=== PATIENT | female | born 1945 | race Caucasian/White ===

== ENCOUNTER 2022-04-03 11:50 | Day surgery (SDC) | payer OTHER ==
[~2022-04-03] VITALS: Ht 165.1 cm; Wt 56.8 kg
[~2022-04-03 11:50] MED LIST: ANIMAL CHEWS1 EACH PO; CALCIUM 600 +1 EAC1 PO; CALCIUM500 M1 PO; CELEBREX200 MG PO; GLUCOSAMINE1000 MG PO; HYDROCODON-ACE1 EA11 PO; MAGNESIUM100 MG PO; MAGNESIUM27 MG PO; PREVACID30 MG PO; VITAMIN D400 UNIT PO; VITAMIN D50000 UNI1 PO; VITAMIN E400 UNI1 PO; XANAX0.5 MG PO; [UNRECOGNIZED DRUG - OTHER]
--- NOTE | 2022-04-03 15:04 | NUR ---
04/03/22 Nader4 Francy Stacy 1500- PT ARRIVES TO PACU AWAKE AND TALKING. PT REPORTS NO PAIN OR NAUSEA. RESP EVEN AND UNLABORED. OXYGEN SAT HIGH 90'S ON RA. PT'S HEAD OF BED ELEVATED SLIGHTLY. PT REPORTS NO DIZZINESS WITH THIS.
[2022-04-03] MEDS ORDERED: ACETAMINOPHEN500 MG PO (15:15)
[2022-04-03] MEDS ORDERED: OXYCODON-ACETA1 EAC2 PO (15:15)
[2022-04-03] MEDS ORDERED: IBUPROFEN600 MG PO (15:15)
--- NOTE | 2022-04-06 14:34 | OR ---
[facility] [address] [place], [place] [address] Signed DATE OF OPERATION: 04/03/2022 SURGEON: Kevon Lloyd MD PREOPERATIVE DIAGNOSIS: Soft tissue mass posterior superior thorax. 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 PROCEDURE: Excision of soft tissue mass (6 cm, subfascial adjacent to posterior thoracic fascia). ANESTHESIA: Local with monitored anesthesia care, Geoff Olson CRNA and local 10 mL of 0.25% Marcaine with epinephrine. INDICATION: This 77-year-old white woman who is a patient of [facility]. She was referred for colonoscopy as well as a soft tissue mass in the right posterior junction to the neck and thorax. Soft tissue mass most likely represents a lipoma. She has no regional adenopathy. An ultrasound performed, showing a 3.6 cm mass and an adjacent lobulated 2.2 cm nearby mass in February 2022. She wishes to have excision of the mass. She understands the risks of bleeding, infection, recurrence, and other unforeseen complications related to the mass excision and wishes to proceed. FINDINGS: Indeed, a lipomatous mass was noted. It was subfascial and densely adjacent to the posterior thoracic fascia. Complete excision was accomplished. The wound was closed without problem. PROCEDURE IN DETAIL: The patient brought to the operating room, placed in lateral decubitus position, left side down. The posterior thorax and neck were prepared with a chlorhexidine solution and draped sterilely. A 1% lidocaine was injected transversely directly over the mass. Dissection carried through the dermis and subcutaneous tissue with sharp and electrocautery dissection. The capsule over the lipomatous mass was noted. This was dissected free from surrounding soft tissue and extended down to the posterior thoracic fascia. It was excised completely. Irrigation was undertaken. A 10 mL of 0.25% Marcaine with epinephrine was injected in total. The wound was closed in layers with Electronically Signed By: KEVON LLOYD MD 04/06/22 1434 PATIENT NAME: NAEEM CUELLO OPERATIVE REPORT DATE OF : 49 REPORT #: [id number] PHYSICIAN: KEVON LLOYD MD PCP: ADELE JOY REPORT IS CONFIDENTIAL AND NOT TO BE RELEASED WITHOUT AUTHORIZATION [address] [address] Signed interrupted 2-0 Vicryl and running subcuticular 3-0 Vicryl for the skin. Steri-Strips were applied. An Acticoat dressing was additionally applied. She tolerated procedure well. Blood loss was minimal. MD MARY ALICE Hahn/SHEA /[id number] cc: JOBY Evans Copies: ~ Electronically Signed By: KEVON LLOYD MD 04/06/22 1434 PATIENT NAME: NAEEM CUELLO OPERATIVE REPORT DATE OF : 49 REPORT #: [id number] PHYSICIAN: KEVON LLOYD MD PCP: ADELE JYO REPORT IS CONFIDENTIAL AND NOT TO BE RELEASED WITHOUT AUTHORIZATION
--- NOTE | 2022-04-09 06:17 | PATH ---
[facility] [address] [place], [place] [address] Signed SPECIMEN(S): A POSTERIOR CHEST SPECIMEN SOURCE: A. POSTERIOR CHEST CLINICAL HISTORY: Lipoma FINAL PATHOLOGIC DIAGNOSIS: Posterior chest, soft tissue mass, excision: - Lipoma. NRT:cml:C2NR MICROSCOPIC EXAMINATION: Histologic sections of all submitted blocks are examined by light microscopy. These findings, together with the gross examination, support the pathologic diagnosis. GROSS DESCRIPTION: The specimen, labeled "DM, A," and designated on the requisition "soft tissue mass posterior chest, lipoma," is received in formalin and consists of multiple yellow, lobulated, markedly ragged, rubbery, unoriented, designated, and fatty tissue pieces from less than 0.1 up to 4.4 cm in greatest dimension and 5.9 g. The specimen is inked blue and cross-sectioned to reveal yellow, lobulated, and homogenous tissue. The largest piece has a rare, focal, 0.8 cm in greatest dimension area of white fibrous septae that is without an associated mass/lesion. An additional fibrous area or a discrete mass/lesions are grossly identified. Geoscience Specialist sections are submitted in one cassette (A1). AI (under the direct supervision of a pathologist) The Gross Description was prepared using a voice recognition system. The report was reviewed for accuracy; however, sound-alike word errors, addition and/or deletions may occur. If there is any question about this report, please contact Client Services. PERFORMING LABORATORY: The technical component was performed by [facility], [address] [place] [id number] (CLIA# [id number]). Professional interpretation was performed by [facility] PATIENT NAME: NAEEM CUELLO PATHOLOGY DATE OF : 49 REPORT #: [id number] PHYSICIAN: [facility] PCP: ADELE JOY REPORT IS CONFIDENTIAL AND NOT TO BE RELEASED WITHOUT AUTHORIZATION [facility] [address] [place], [place] [address] Signed [facility], [address] [place] [address], [facility], [place] [address] (CLIA# [id number]). Diagnostician: Meghan Glaser MD Pathologist Electronically Signed 04/08/2022 Copies: ~ PATIENT NAME: NAEEM CUELLO PATHOLOGY DATE OF : 49 REPORT #: [id number] PHYSICIAN: [facility] PCP: ADELE JOY REPORT IS CONFIDENTIAL AND NOT TO BE RELEASED WITHOUT AUTHORIZATION
== END 2022-04-03 15:48 | disposition home or self-care (01) ==
LOC: DS 11:50
PROVIDERS: ATTEND Surgery
PROC: 0WB80ZZ Excision of Chest Wall, Open Approach (ICD-10-PCS; principal; 2022-04-03 14:45)
DX: D17.79 Benign lipomatous neoplasm of other sites (principal); K21.9 Gastro-esophageal reflux disease without esophagitis; Z88.5 Allergy status to narcotic agent; Z88.0 Allergy status to penicillin
CPT/HCPCS: 00300; J0690; J2704; J3010; J7121

== ENCOUNTER 2022-05-08 11:52 | Day surgery (SDC) | payer OTHER ==
[~2022-05-08] VITALS: Ht 165.1 cm; Wt 56.8 kg
[~2022-05-08 11:52] MED LIST changes: +ACETAMINOPHEN500 MG PO; +IBUPROFEN600 MG PO; +OXYCODON-ACETA1 EAC2 PO
--- NOTE | 2022-05-08 13:25 | NUR ---
05/08/22 1325 Sheets,Elisabet 1318-PATIENT ARRIVED TO PACU ON 2L NC RR EVEN. PATIENT AWAKE DENIES PAIN OR NAUSEA. LAYING LEFT LATERAL. IVF INFUSING. ABDOMEN SOFT. ENCOURAGED TO PASS GAS. PATIENT REPOSITIONED TO BACK REPORTS "SHOULDER FEELS NUMB" PATIENT DOZES TO SLEEP.
--- NOTE | 2022-05-08 15:13 | OR ---
[facility] [address] [place], [place] [address] Signed DATE OF OPERATION: 05/08/2022 SURGEON: Kevon Lloyd MD PREOPERATIVE DIAGNOSIS: History of hyperplastic polyps 2018. POSTOPERATIVE DIAGNOSES: 1. Hyperplastic polyps of rectum and rectosigmoid. 2. Diverticulosis. PROCEDURE: Total colonoscopy to cecum with cold morcellation polypectomy x6. ANESTHESIA: Intravenous sedation; fentanyl 175 mcg and Versed 7 mg. INDICATION: This 77-year-old white woman is a patient of [facility]. She is known to me from the past having undergone colonoscopy. She had hyperplastic polyps noted in 2018. She is symptom-free and has no family history of colon cancer. She is admitted at this time to undergo colonoscopy. She understands the risk of bleeding, infection, and perforation. FINDINGS: The prep was excellent. Complete colonoscopy was undertaken to the cecum without question. She had hyperplastic appearing polyps of rectosigmoid and rectum which were excised with cold morcellation technique. She had no polyps that are worrisome for cancer in any way. She additionally had diverticulosis of the sigmoid and left colon. DESCRIPTION OF PROCEDURE: The patient was brought to the endoscopy suite and placed in lateral decubitus position, given intravenous sedation to the point of slurred speech and nystagmus. Digital rectal examination was normal. The Olympus video colonoscope was passed in the rectum and manipulated throughout the colon ultimately intubating the cecum itself. The ileocecal valve and appendiceal orifice were normal. Scope was withdrawn from that point. Examination throughout showed no sign of abnormality other than numerous diverticula of the left colon and sigmoid. In the rectosigmoid polyps, most likely hyperplastic. Three in Electronically Signed By: KEVON LLOYD MD 05/08/22 1513 PATIENT NAME: NAEEM CUELLO OPERATIVE REPORT DATE OF : 49 REPORT #: [id number] PHYSICIAN: KEVON LLOYD MD PCP: ADELE JOY REPORT IS CONFIDENTIAL AND NOT TO BE RELEASED WITHOUT AUTHORIZATION [facility] [address] [place], [place] [address] Signed total were excised from the rectosigmoid. Further withdrawal of the rectum showed most probable findings of hyperplastic polyps. These two were excised with cold morcellation technique. The scope was removed and the patient taken to the recovery room in good condition. CONCLUDING DIAGNOSIS: Hyperplastic polyps, most likely and diverticulosis. PLAN: Recommend repeat colonoscopy in seven years, sooner if symptoms should occur. MD MARY ALICE Hahn/SHEA /[id number] cc: JOBY Evans Copies: ~ Electronically Signed By: KEVON LLOYD MD 05/08/22 1513 PATIENT NAME: NAEEM CUELLO OPERATIVE REPORT DATE OF : 49 REPORT #: [id number] PHYSICIAN: KEVON LLOYD MD PCP: ADELE JOY REPORT IS CONFIDENTIAL AND NOT TO BE RELEASED WITHOUT AUTHORIZATION
== END 2022-05-08 14:15 | disposition home or self-care (01) ==
LOC: OPS 11:52 → DS 11:52 → OPS 13:00 → DS 13:00 → OPS 14:15
PROVIDERS: ATTEND Surgery
PROC: 0DBN8ZZ Excision of Sigmoid Colon, Via Natural or Artificial Opening Endoscopic (ICD-10-PCS; principal; 2022-05-08 13:00)
DX: Z12.11 Encounter for screening for malignant neoplasm of colon (principal); K57.30 Diverticulosis of large intestine without perforation or abscess without bleeding; Z86.010 Personal history of colon polyps; Z88.0 Allergy status to penicillin; Z88.5 Allergy status to narcotic agent; K63.5 Polyp of colon; K62.1 Rectal polyp
CPT/HCPCS: 99153; G0500; J2250; J3010; J7121

== ENCOUNTER 2025-03-06 08:55 | Day surgery (SDC) | payer MEDICARE, OTHER ==
[~2025-03-06] VITALS: Ht 165.1 cm; Wt 56.0 kg
[~2025-03-06 08:55] MED LIST changes: +CALCIUM + D3 E1 EACH PO; +CALCIUM MAGNES1 EAC1 PO; +CEFAZOLIN SODIUM 2 GM in SODIUM CHLORIDE 0.9% 100 ML IV SCH; +FOSAMAX70 MG PO; +IBLOOD GLUCOSE TEST STRIP 1 EA TEST VI PRN; +LACTATED RINGER'S 1,000 ML IV SCH; +LIDOCAINE HCL 1% 5 ML SDV INJ ONE; -MAGNESIUM27 MG PO; +TRANEXAMIC ACID IN NACL,ISO-OS 1,000 MG/100 ML PIGGYBACK IV SCH; +VITAMIN B121000 MCG PO; +VITAMIN D21250 MCG PO
[2025-03-06] MEDS ORDERED: DEXAMETHASONE SOD PHOS 4 MG/ML VIAL ONE ×2 (09:24→12:04)
[2025-03-06] MEDS ORDERED: Ropivacaine HCl 0.5% 30 ML VIAL ONE (09:24)
[2025-03-06] MEDS ORDERED: SODIUM CHLORIDE 0.9% 20 ML IV ONE (09:24)
[2025-03-06] MEDS ORDERED: LIDOCAINE HCL 2% 5 ML SDV ONE ×2 (09:24→11:38)
[2025-03-06 09:25] VITALS: BP 121/81
[2025-03-06] MEDS ORDERED: SEVOFLURANE 250 ML BTL INH ONE (10:13)
[2025-03-06] MEDS ORDERED: HYDROCODONE/ACETA 7.5/325 TAB PO PRN (11:30)
[2025-03-06] MEDS ORDERED: KETOROLAC TROMETHAMINE 15 MG/ML VIAL IV PRN (11:30)
[2025-03-06] MEDS ORDERED: fentaNYL citrate 100 MCG/2 ML VIAL ONE (11:38)
[2025-03-06] MEDS ORDERED: ROCURONIUM BROMIDE 50 MG/5 ML SYR ONE (11:38)
[2025-03-06] MEDS ORDERED: KETOROLAC TROMETHAMINE 30 MG/ML VIAL ONE (12:04)
[2025-03-06] MEDS ORDERED: IBLOOD GLUCOSE TEST STRIP 1 EA TEST VI PRN (12:15)
[2025-03-06] MEDS ORDERED: NALOXONE HCL 0.4 MG SYR IV PRN (12:15)
[2025-03-06] MEDS ORDERED: fentaNYL citrate 50 MCG/ML SDV IV PRN (12:15)
[2025-03-06] MEDS ORDERED: HYDROmorphone HCL 1 MG/ML SYR IV PRN (12:15)
[2025-03-06] MEDS ORDERED: PHENYLEPHRINE HCL IN 0.9% NACL 1 MG/10 ML SYR ONE (12:31)
[2025-03-06] MEDS ORDERED: SUGAMMADEX SODIUM 200 MG/2 ML ML ONE (12:31)
[2025-03-06] MEDS ORDERED: ACETAMINOPHEN 1,000 MG/100 ML VIAL ONE (12:31)
[2025-03-06] MEDS ORDERED: HYDROCODON-ACE1 EA11 PO (12:51)
[2025-03-06 13:08] VITALS: BP 150/59
--- NOTE | 2025-03-06 13:46 | NUR ---
03/06/25 Stevan6 Qiana Scott 1236- PT PRESENTS TO PACU, SEMI EVANS POSITION, NON REACTIVE TO STIMULUS. OPA IN PLACE, BREATHING EVEN AND NON LABORED, O2 AT 6L PER MASK. ABD SOFT, NON DISTENDED. LR INFUSING TO LFA, SLING IN PLACE TO RIGHT ARM, WITH DRESSINGS TO RIGHT SHOULDER. PULSES INTACT TO RIGHT HAND. ALL MONITORS IN PLACE. 1239- OPA REMOVED, PT REACTIVE TO STIMULUS, UNABLE TO ANSWER QUESTIONS AT THIS TIME. 1245- CRYO CUFF PLACED TO RIGHT SHOULDER, MOVED TO ROOM AIR. 1252- PT TOOK SMALL SIPS OF WATER PER REQUEST, TOLERATING WELL. 1305- PT TAKEN BACK TO DAY SURGERY, AT BEDSIDE. AWAKE AND ANSWERING QUESTIONS. DRESSINGS ASSESSED WITH MARQUISE PARHAM AND REPORT GIVEN AT BEDSIDE, CARE OF PT TURNED OVER AT THIS TIME.
[2025-03-06 14:11] VITALS: BP 120/94
--- NOTE | 2025-03-06 16:21 | NUR ---
EMELIA 1305-PT BACK TO ROOM FROM PACU ON RA. RECEIVED REPORT FROM MEREDITH PARHAM. PT IS DROWSY. RESP EVEN AND UNLABORED. PT DENIES PAIN AND NAUSEA. CRYO CUFF IN PLACE AND RUNNING. PT TAKING SIPS OF WATER. LE 1320-PT SITTING AT SIDE OF BED. DENIES DIZZINESS OR NAUSEA. PT AMBULATES TO RESTROOM. GAIT STEADY AND TOLERATED WELL. PT ABLE TO VOID. LE 1325-PT AMBULATES BACK TO ROOM. PT LAYING IN BED WITH CRYO CUFF IN PLACE. AT BEDSIDE. PT TAKING SIPS OF WATER. NO OTHER NEEDS AT THIS TIME. CALL LIGHT WITHIN REACH.
--- NOTE | 2025-03-06 16:26 | NUR ---
LE 1411-PT LAYING IN BED. RESP EVEN AND UNLABORED. PT DENIES PAIN AND NAUSEA. CRYO CUFF IN PLACE AND RUNNING. PT WOULD LIKE COFFEE. STATES I WILL BRING HER SOME. PT EATING A SNACK. NO OTHER NEEDS AT THIS TIME. CALL LIGHT WITHIN REACH.
--- NOTE | 2025-03-06 16:28 | NUR ---
EMELIA 1450-PT READY TO GO HOME. THIS RN HELPS PT GET DRESSED. EMELIA 1505-WENT OVER DISHCARGE INSTRUCTIONS WITH PT AND . ALL QUESTIONS ANSWERED. WENT OVER POSTOP MEDICATION. EMELIA 1515-PT AMBUALTES TO WHEELCHAIR. RIDE PROVIDED TO FRONT OF HOSPITAL WHERE WAS WATING WITH THE CAR.
[2025-03-06] MEDS ORDERED: CELECOXIB 200 MG CAP PO SCH (17:00)
--- NOTE | 2025-03-10 06:56 | OR ---
[facility] [address] [place], [place] [address] Signed DATE OF OPERATION: 03/06/2025 SURGEON: Chuy Koehler MD PREOPERATIVE DIAGNOSIS: Rotator cuff tear, right shoulder. POSTOPERATIVE DIAGNOSIS: Rotator cuff tear, right shoulder. PROCEDURES PERFORMED: 1. Right shoulder arthroscopy with subacromial decompression. 2. Arthroscopic rotator cuff repair. AUTHORIZATION SPECIALIST: None. ANESTHESIA: General. BLOOD LOSS: Minimal. IMPLANTS: One 4.75 SwiveLock. BRIEF HISTORY: Norma is a 80-year-old female with pain and weakness in her shoulder. MRI was consistent with a small anterior tear of the supraspinatus. Risks and benefits of operative treatment were discussed with her and she elected to proceed. Once consent was obtained she was taken to the operating room. After adequate anesthesia, she was placed in a beach chair position. All downside pressure points were well padded. Shoulder was prepped and draped in a standard sterile fashion. Shoulder was injected with 15 mL 0.25% Marcaine with epinephrine as was subacromial space. Standard posterior portal was made. The scope was introduced in the shoulder. ARTHROSCOPIC FINDINGS: The glenohumeral surfaces showed grade 2 areas, grade 3 chondromalacia particularly on the humerus and anterior superior aspect of the glenoid. The biceps, biceps anchor and labrum were intact. Undersurface of the rotator cuff showed a 1 cm tear of the anterior supraspinatus. Subacromial space showed moderate Electronically Signed By: CHUY KOEHLER MD 03/10/25 0656 PATIENT NAME: NORMA CUELLO OPERATIVE REPORT DATE OF : 49 REPORT #: [id number] PHYSICIAN: CHUY KOEHLER MD PCP: ELKE FRITZ PAC REPORT IS CONFIDENTIAL AND NOT TO BE RELEASED WITHOUT AUTHORIZATION [address] [address] Signed bursitis and again the full-thickness tear. DESCRIPTION OF OPERATION: Standard diagnostic arthroscopy was undertaken as noted above. The scope was withdrawn, placed in subacromial space. The standard lateral portal was made and using a combination of the shaver and Mitek VAPR the bursa was removed. The rotator cuff tear was easily noted and was cleared of soft tissue debris and devitalized rotator cuff tissue. Once this was accomplished, the tuberosity was decorticated using the shaver. The FiberTape was then placed in an inverted mattress configuration through the tear. The 4.75 anchor was then placed in the lateral aspect of the tuberosity. It was impacted into the bone until it was well seated and threaded into position. The tear was nicely reduced. It was stable under motion and had excellent bleeding at the end of the procedure. The suture ends were cut and the portals were closed using 3-0 nylon, dressed with Allevyn and OpSites. She tolerated the procedure well. All sponge, needle, and instrument counts were correct. Chuy Koehler MD BA/ROLANDOL /[id number] Copies: ~ Electronically Signed By: CHUY KOEHLER MD 03/10/25 0656 PATIENT NAME: KHUSHBOONORMACIRA CONTRERAS OPERATIVE REPORT DATE OF : 49 REPORT #: [id number] PHYSICIAN: CHUY KOEHLER MD PCP: ELKE FRITZ PAC REPORT IS CONFIDENTIAL AND NOT TO BE RELEASED WITHOUT AUTHORIZATION
== END 2025-03-06 15:15 | disposition home or self-care (01) ==
LOC: DS 08:55
PROVIDERS: ATTEND Specialist
PROC: 0RNJ4ZZ Release Right Shoulder Joint, Percutaneous Endoscopic Approach (ICD-10-PCS; principal; 2025-03-06 11:30)
DX: M75.121 Complete rotator cuff tear or rupture of right shoulder, not specified as traumatic (principal); M94.211 Chondromalacia, right shoulder; M75.51 Bursitis of right shoulder; G89.18 Other acute postprocedural pain; Z88.5 Allergy status to narcotic agent; Z88.0 Allergy status to penicillin; Z79.899 Other long term (current) drug therapy
CPT/HCPCS: 01630; 64415; C1713; J0131; J0165; J0688; J1100; J1885; J2003; J2405; J2704; J2795; J3010; J3490; J7121